=== PATIENT | male | born 1975 | race Caucasian/White ===

== ENCOUNTER 2020-08-31 20:01 | Emergency (ER) | payer BC ==
[~2020-08-31 20:01] MED LIST: AUGMENTIN 875-1 EACH PO
[2020-08-31 20:44] LABS: HEMOGLOBIN 16.8 gm/dl (14.0-17.5); RED BLOOD COUNT 5.25 M/UL (4.20-5.50); WHITE BLOOD COUNT 15.2 K/UL (4.5-11.0)
[2020-08-31 21:00] LABS: BUN/CREATININE RATIO 10 (0-10)
[2020-08-31] MEDS ORDERED: ZYRTEC10 MG PO (22:59)
[2020-08-31] MEDS ORDERED: MEDROL4 MG PO (22:59)
== END 2020-08-31 23:17 | disposition home or self-care (01) ==
LOC: ER1 20:01
PROVIDERS: Preventive Medicine Occupational Medicine
DX: T78.40XA Allergy, unspecified, initial encounter (principal); R21 Rash and other nonspecific skin eruption; I10 Essential (primary) hypertension; Z87.891 Personal history of nicotine dependence
CPT/HCPCS: 70450; 71045; 80053; 80307; 82140; 83880; 85025; 85652; 86140; 96374; 96375; 99284; G0480; J1200; J2060; J2930